=== PATIENT | male | born 1980 | race African-American/Black ===

== ENCOUNTER 2018-02-16 09:18 | Emergency (ER) | payer BC, SELFPAY ==
[2018-02-16 09:28] VITALS: BP 105/83; PULSE 84; RESP 13; TEMP 36.9; O2SAT 98
[2018-02-16 09:44] VITALS: PULSE 82; RESP 16; O2SAT 99
[2018-02-16] MEDS: ALBUTEROL 2.5 MG/3 ML NEB (ADULT) INH (09:44)
--- NOTE | 2018-02-16 09:44 | ED_ITS ---
HPI - URI/Sore Throat General Chief Complaint: Upper Respiratory Symptoms Stated Complaint: cough a week Time Seen by Provider: 02/16/18 09:27 Source: patient Mode of arrival: ambulatory Limitations: no limitations History of Present Illness HPI Narrative: Patient is a 37-year-old male who presents with cough and sore throat overall weakness. His she does been ongoing for a week. He has lost his voice. states he was given cough drops he really was not feeling very good Thursday he went to a football game where he was which during the by Thursday he lost his voice. Over the last 2 days he continues to worsen. Last night he was unable to sleep due to coughing. He does not cough anything up he denies shortness of breath. MD Complaint: cough, sore throat and rhinorrhea Related Data Previous Rx's Medication Instructions Recorded albuterol sulfate 1 puff INHALATION Q4-6H PRN #8 gram 02/16/18 azithromycin See Label Instructions .ROUTE 02/16/18 .COMPLEX #3 tab prednisone 40 mg PO DAILY #10 tab 02/16/18 Review of Systems Review of Systems All systems reviewed & are unremarkable except as noted in HPI and below Constitutional Reports fatigue, Denies fever(s) and Reports lethargy Eyes Denies change in vision, Denies eye discharge, Denies irritation and Denies loss of vision ENT Ears, Nose, Mouth, and Throat: Denies change in voice, Denies neck pain and Denies sore throat Cardiovascular Denies chest pain, Denies irregular heart rhythm, Denies lightheadedness, Denies palpitations and Denies orthopnea Respiratory Reports as per HPI Gastrointestinal Gastrointestinal: Denies abdominal pain, Denies change in bowel habits, Denies diarrhea, Denies nausea and Denies vomiting Musculoskeletal Denies neck pain Integumentary/Breasts Denies pruritus, Denies erythema, Denies rash and Denies wounds Neurologic Denies loss of vision Endocrine Reports fatigue and Denies palpitations [facility] Medical History Healthy adult (Acute) Social History Smoking Status: Current every day smoker Exam Initial Vital Signs Initial Vital Signs: Vital Signs Temperature 98.5 F 02/16/18 09:28 Pulse Rate 84 02/16/18 09:28 Respiratory Rate 13 02/16/18 09:28 Blood Pressure 105/83 02/16/18 09:28 Pulse Oximetry 98 02/16/18 09:28 GENERAL: Well-appearing, well-nourished and in no acute distress. HEENT: Head atraumatic,EOMI, pupils reactive, face symmetric PHARYNX: Cobble stone mild irritation no tonsillar exudate or uvula deviation CARDIOVASCULAR: Regular rate and rhythm without murmurs, rubs or gallops. RESPIRATORY: Breath sounds equal bilaterally, no wheezes rales or rhonchi. ABDOMEN: Soft, nontender. Normoactive bowel sounds all 4 quadrants. No guarding or rebound. EXTREMITIES: Normal range of motion, no clubbing or edema. Neurovascularly intact NEUROLOGICAL: Alert and oriented x4.Normal gait and speech. SKIN: Warm, dry, no laceration, no petechiae, no rashes or lesions. Course Orders Ordered: Discontinued Medications Albuterol (Ventolin) 2.5 mg INH NOW ONE Stop: 02/16/18 09:36 Last Admin: 02/16/18 09:44 Dose: 2.5 mg Vital Signs - 8 hr 02/16/18 09:28 02/16/18 09:44 Temperature 98.5 F Pulse Rate 84 82 Respiratory Rate 13 16 Blood Pressure 105/83 Pulse Oximetry 98 99 MDM - URI/Sore Throat MDM Narrative Medical decision making narrative: Patient overall is feeling much better. He is taught how to use spacer by Respiratory. Discharge Plan Departure Patient Disposition: Home Clinical Impression: Bronchitis Discharge Date/Time: 02/16/18 10:04 Interventions: ED Discharge Assessment Last Done: 02/16/18 10:04 Instructions: Acute Bronchitis Activity Restrictions/Additional Instructions: *You have been diagnosed with bronchitis laryngitis *What to do: This may be viral however it is ongoing for over a week will do a trial of antibiotic *Continue to take medications as directed: Faxed to [facility] in [place] Albuterol inhaler 1-2 puffs every 4 hr with spacer if needed for coughing episodes or shortness of breath Z-Mateo take as directed Prednisone 40 mg once a day for 5 days *Follow up with your primary care provider in 2-3 days *Return to ER if you should have increasing shortness of breath, inability to tolerate fluids, fever not controlled or any new, worsening or concerning symptoms Prescriptions: New prednisone 20 mg tablet 40 mg PO DAILY Qty: 10 RF: 0 albuterol sulfate 90 mcg/actuation HFA aerosol inhaler 1 puff INHALATION Q4-6H PRN (Reason: shortness of breath or wheezing) Qty: 8 RF: 0 azithromycin 500 mg tablet See Label Instructions .ROUTE .COMPLEX Qty: 3 RF: 0 Stand Alone Forms: Work/School Restrictions
--- NOTE | 2018-02-18 16:31 | PC.NURSE ---
Attempted follow up phone call. No answer at this time.
== END 2018-02-16 10:04 | disposition home or self-care (01) ==
LOC: ED 10:10
PROVIDERS: Emergency Provider Emergency Medicine
DX: J40 Bronchitis, not specified as acute or chronic (principal)
CPT/HCPCS: 99282; 99283; J7613

== ENCOUNTER 2019-03-13 10:25 | Emergency (ER) | payer OTHER, SELFPAY ==
[2019-03-13 10:35] VITALS: BP 134/93; PULSE 97; RESP 18; TEMP 36.4; O2SAT 98; BMI 28.5
--- NOTE | 2019-03-13 11:47 | ED.BACK ---
HPI - Back Pain/Injury <JEWELL RodriguezBC - Last Filed: 03/13/19 14:38> General Chief Complaint: Back Pain/Injury Stated Complaint: Low back pain Time Seen by Provider: 03/13/19 11:18 Source: patient and family Mode of arrival: Ambulatory Limitations: no limitations History of Present Illness HPI Narrative: 38-year-old male current smoker who presents with his for chief complaint of continued back pain. He was seen at [facility] on for back pain, any as sudden lower back pain while having a bowel movement. He presents here because he is running out of his medication prescriptions. He states he is still in pain and has no plan for follow-up. He does not have a primary care provider. He denies any numbness or tingling in his genitals, incontinence of bowel or incontinence of bladder. He states he has been not taking his pain medications as much as possible, and not taking full doses because he is worried about running out of his medications. He states that [facility] did x-rays. His is requesting an MRI. He denies any fevers, pertinent medical history or history of cancer. He denies any falls or trauma since the incident. He has not tried any topical medications. They state that the patient had swelling in his lower back, but it is much improved Related Data Previous Rx's Medication Instructions Recorded albuterol sulfate 1 puff INHALATION Q4-6H PRN #8 gram 02/16/18 azithromycin See Rx Instructions .ROUTE 02/16/18 .COMPLEX #3 tab prednisone 40 mg PO DAILY #10 tab 02/16/18 cyclobenzaprine 10 mg PO TID PRN #20 tab 03/13/19 lidocaine 1 patch TOP DAILY #15 each 03/13/19 oxycodone-acetaminophen [Percocet] 2 tab PO Q4-6H PRN #14 tab 03/13/19 prednisone 50 mg PO DAILY #4 tab 03/13/19 Allergies Allergy/AdvReac Type Severity Reaction Status Date / Time No Known Drug Allergies Allergy Verified 03/13/19 12:34 Review of Systems <JEWELL RodriguezBC - Last Filed: 03/13/19 14:38> Review of Systems Narrative: GENERAL: Denies chills, fatigue, malaise, fever, sweats. HEENT: Denies sinus pain, ear pain, sore throat, difficulty swallowing, dizziness. RESPIRATORY: Denies dyspnea, cough, wheezing, hemoptysis, sputum. CARDIOVASCULAR: Denies chest pain, palpitations, orthopnea, edema, GASTROINTESTINAL: Denies nausea, vomiting, abdominal pain, diarrhea, constipation, melena. : Denies dysuria, frequency, incontinence, hematuria, urinary retention. MUSCULOSKELETAL: See HPI SKIN: Denies rash, skin lesions, or other NEUROLOGIC: Denies weakness, headache, numbness, change in speech, confusion, seizures, incoordination. PSYCHIATRIC: No concerning psychosocial issues. 12 point review of systems is negative except for those stated above Patient History <MANUEL Rodriguez - Last Filed: 03/13/19 14:38> Medical History (Updated 03/13/19 @ 13:19 by MANUEL Rodriguez) Healthy adult (Acute) Social History Smoking Status: Current every day smoker tobacco type: vaping alcohol intake frequency: holidays/special occasions only Substance Use Type: does not use Exam <MANUEL Rodriguez - Last Filed: 03/13/19 14:38> Narrative Exam Narrative: GENERAL: This is a well-nourished, well-developed patient, appears uncomfortable HEAD: Atraumatic. Normocephalic. No temporal or scalp tenderness. EYES: Pupils equal round and reactive. Extraocular motions intact. No scleral icterus. No injection or drainage. ENT: Nose without bleeding, purulent drainage or septal hematoma. Throat without erythema, tonsillar hypertrophy or exudate. Uvula midline. Airway patent. NECK: Trachea midline. No JVD or lymphadenopathy. Supple, nontender, no meningeal signs. CARDIOVASCULAR: Regular rate and rhythm RESPIRATORY: Clear to auscultation. Breath sounds equal bilaterally. No wheezes, rales, or rhonchi. No cough. No increased respiratory effort. No accessory muscle use. GASTROINTESTINAL: Abdomen soft, non-tender, nondistended. No hepato-splenomegaly, or palpable masses. No guarding. EXTREMITIES: No clubbing, cyanosis, or edema. No joint tenderness, effusion, or edema noted. BACK: Pain to L-spine palpation. Pain to bilateral paraspinal muscle palpation, left worse than right. No pain to the cervical or thoracic spine. NEURO: AOx3. Strength is equal upper and lower extremities bilaterally. SKIN: No rash or erythema over lower back Initial Vital Signs Initial Vital Signs: Vital Signs Temperature 97.6 F 03/13/19 10:35 Pulse Rate 97 H 03/13/19 10:35 Respiratory Rate 18 03/13/19 10:35 Blood Pressure 134/93 H 03/13/19 10:35 Pulse Oximetry 98 03/13/19 10:35 <Lynette Jordan MD - Last Filed: 03/13/19 17:04> Initial Vital Signs Initial Vital Signs: Vital Signs Temperature 97.6 F 03/13/19 10:35 Pulse Rate 97 H 03/13/19 10:35 Respiratory Rate 18 03/13/19 10:35 Blood Pressure 134/93 H 03/13/19 10:35 Pulse Oximetry 98 03/13/19 10:35 Course <MANUEL Rodriguez - Last Filed: 03/13/19 14:38> Orders Ordered: Discontinued Medications Lidocaine (Lidoderm) 1 each TOP NOW ONE Stop: 03/13/19 11:41 Last Admin: 03/13/19 12:37 Dose: 1 each Documented by: MAGEDSENMorgan Oxycodone/Acetaminophen (Percocet 5/325) 1 tab PO NOW ONE Stop: 03/13/19 11:46 Last Admin: 03/13/19 12:37 Dose: 1 tab Documented by: MEISENB Prednisone (Deltasone) 60 mg PO NOW ONE Stop: 03/13/19 11:41 Last Admin: 03/13/19 12:37 Dose: 60 mg Documented by: HARMAN Reevaluation(s) Reevaluation #1: Records were obtained from [facility] to evaluate the patient's imaging from his emergency department visit. As per Dr. Carter, the patient is lumbar x-ray illustrate is no fracture, no localizing disc abnormality or listhesis. Incidental noted of lumbarization of the S1 segment appears to demonstrate completely formed additional vertebrae. Emergency department records illustrate that the patient was given Flexeril, Toradol, Tylenol and oxycodone. The patient was given prescriptions of Flexeril, Percocet, and ibuprofen 800. His last medications today or given at 8:30 a.m.. Vital Signs Vital signs: Vital Signs - 8 hr 03/13/19 10:35 03/13/19 12:06 03/13/19 13:40 Temperature 97.6 F Pulse Rate 97 H 75 81 Respiratory Rate 18 16 16 Blood Pressure 134/93 H Blood Pressure [Left Arm] 142/85 H 134/87 Pulse Oximetry 98 99 99 <Lynette Jordan MD - Last Filed: 03/13/19 17:04> Orders Ordered: Discontinued Medications Lidocaine (Lidoderm) 1 each TOP NOW ONE Stop: 03/13/19 11:41 Last Admin: 03/13/19 12:37 Dose: 1 each Documented by: HARMAN Oxycodone/Acetaminophen (Percocet 5/325) 1 tab PO NOW ONE Stop: 03/13/19 11:46 Last Admin: 03/13/19 12:37 Dose: 1 tab Documented by: MAGEDSENMorgan Prednisone (Deltasone) 60 mg PO NOW ONE Stop: 03/13/19 11:41 Last Admin: 03/13/19 12:37 Dose: 60 mg Documented by: HARMAN Vital Signs Vital signs: Vital Signs - 8 hr 03/13/19 10:35 03/13/19 12:06 03/13/19 13:40 Temperature 97.6 F Pulse Rate 97 H 75 81 Respiratory Rate 18 16 16 Blood Pressure 134/93 H Blood Pressure [Left Arm] 142/85 H 134/87 Pulse Oximetry 98 99 99 [facility] - Back Pain/Injury <WINSOME Rodriguez-TRISTEN - Last Filed: 03/13/19 14:38> MDM Narrative Medical decision making narrative: The patient is a 38-year-old male who presents to the emergency department with continued back pain. He was evaluated at [facility] on 03/10 and states that he is still having continued pain. Records were obtained which show no acute fracture on x-ray. We elected to hold off on imaging in the emergency department as he has had imaging a few days ago. He has no red flag symptoms of incontinence of bowel, incontinence of bladder saddle anesthesia. He was treated for pain in the emergency department I gave him continue prescriptions. I gave him contact information for the [facility] health clinical resource director and discussed at length follow up with [facility] if he plans on following and L&I report. Patient has no questions or concerns upon discharge and states understanding of return precautions of neurological concerns as well as follow-up care. I did discuss the importance of follow-up care in his back injury, especially given that he may need further imaging or physical therapy. Patient has no questions or concerns upon discharge. Discharge Plan Departure Patient Disposition: Home Clinical Impression: Muscle spasm Strain of lumbar region Qualifiers: Encounter type: initial encounter Qualified Code(s): S39.012A - Strain of muscle, fascia and tendon of lower back, initial encounter Discharge Date/Time: 03/13/19 13:43 Instructions: DI for Low Back Pain, DI for Back Spasm, DI for Back Strain or Sprain Activity Restrictions/Additional Instructions: I have given you contact information for the [facility] clinical resource director. Please use them to arrange a primary care provider. I have also recommend that he follow up with [facility] if you file a [facility] case. They can refer you to a follow-up provider. And be aware that Percocet can be constipating or sedating. Do not combine it with any other sedating agents such as alcohol. I suggest 1-2, try 1 tab intake as 2nd if needed I have also given you lidocaine patches, a burst of steroids and more Flexeril. Please follow up with primary care Provider as soon as possible. Please come back to the emergency department for any acute concerns such as incontinence of bowel incontinence of bladder or numbness in your groin Prescriptions: New prednisone 50 mg tablet 50 mg PO DAILY Qty: 4 RF: 0 cyclobenzaprine 10 mg tablet 10 mg PO TID PRN (Reason: muscle spasm) Qty: 20 RF: 0 oxycodone-acetaminophen [Percocet] 5-325 mg tablet 2 tab PO Q4-6H PRN (Reason: pain) Qty: 14 RF: 0 lidocaine 5 % adhesive patch,medicated 1 patch TOP DAILY Qty: 15 RF: 0 No Action prednisone 20 mg tablet 40 mg PO DAILY Qty: 10 RF: 0 albuterol sulfate 90 mcg/actuation HFA aerosol inhaler 1 puff INHALATION Q4-6H PRN (Reason: shortness of breath or wheezing) Qty: 8 RF: 0 azithromycin 500 mg tablet See Rx Instructions .ROUTE .COMPLEX Qty: 3 RF: 0 Referrals: [facility] [Outside] Stand Alone Forms: Work Release Note
[2019-03-13 12:06] VITALS: BP 142/85; PULSE 75; RESP 16; O2SAT 99
[2019-03-13] MEDS: predniSONE 20 MG TABLET 60 MG PO (12:37)
[2019-03-13] MEDS: LIDOCAINE PATCH 1 EACH ADH..PATCH TOP (12:37)
[2019-03-13] MEDS: OXYCODONE/ACETAMINOPHEN 5/325 TABLET 1 TAB PO (12:37)
--- NOTE | 2019-03-13 12:38 | PC.NURSE ---
pt reports, lifting heavy machinery , an hour later , pt going to the bathroom, unable to get up due to pain. severe mid back pain with radiating pain bilateral lower legs.
[2019-03-13 13:40] VITALS: BP 134/87; PULSE 81; RESP 16; O2SAT 99
== END 2019-03-13 13:43 | disposition home or self-care (01) ==
PROVIDERS: Emergency Provider Nurse Practitioner Family
DX: M62.830 Muscle spasm of back (principal); S39.012A Strain of muscle, fascia and tendon of lower back, initial encounter; Y99.0 Civilian activity done for income or pay
CPT/HCPCS: 99282; 99283